=== PATIENT | male | born 1955 | race Caucasian/White ===

== ENCOUNTER → 2021-02-19 | Outpatient (CLI) | payer MEDICARE ==
[~2021-02-19] MED LIST: ASPIR-LOW81 MG PO; ASPIRIN 325MG325 MG PO; BREO ELLIPTA 11 EACH INH; CEFTIN500 MG PO; CYCLOBENZAPRINE10 MG PO; FLAGYL500 MG PO; GLUCOPHAGE 500500 MG PO; INCRUSE ELLI62.5 MCG INH; LIPITOR80 MG PO; LISINOPRIL10 MG PO; LISINOPRIL20 MG PO; MELOXICAM15 MG PO; NIACIN ER1000 MG PO; PLAVIX 75 MG TA75 MG PO; PROAIR HFA8.5 GM INH; PROTONIX40 MG PO; RANEXA500 MG PO; TYLENOL 325MG325 MG PO; VITAMIN D31000 UNI1 PO; ZETIA10 MG PO
== END ==
LOC: KOH-I 14:28
DX: Z87.891 Personal history of nicotine dependence (principal); R91.8 Other nonspecific abnormal finding of lung field
CPT/HCPCS: 71271

== ENCOUNTER → 2022-02-21 | Outpatient (CLI) | payer MEDICARE, OTHER | LOC: KOH-I 12:39 | DX: Z87.891 Personal history of nicotine dependence (principal); R91.1 Solitary pulmonary nodule | CPT/HCPCS: 71271 ==

== ENCOUNTER → 2022-03-25 | Outpatient (CLI) | payer MEDICARE, OTHER | LOC: HEART 5 07:30 | DX: R06.02 Shortness of breath (principal) | CPT/HCPCS: 78452; A9502; J2785 ==